=== PATIENT | male | born 1985 | race Caucasian/White ===

== ENCOUNTER 2019-11-18 10:06 | Outpatient (CLI) | payer BC ==
--- NOTE | 2019-11-18 10:48 | ULT ---
Exam: Right neck ultrasound HISTORY: Palpable lymph node in the posterior right triangle. Technique: Targeted sonographic imaging of the posterior right neck demonstrates a enlarged lymph nod e with preserved fatty hilum measuring 2.6 cm in maximum dimension IMPRESSION: Lymphadenopathy. Better interrogation of the soft tissue neck structures is recommended w ith a postcontrast soft tissue neck CT
== END 2019-11-18 10:07 | disposition home or self-care (01) ==
LOC: BICULT 10:06
PROVIDERS: ATTEND Physician Assistant
DX: R22.1 Localized swelling, mass and lump, neck (principal); R59.0 Localized enlarged lymph nodes
CPT/HCPCS: 76536

== ENCOUNTER 2020-02-16 13:08 | Outpatient (CLI) | payer BC ==
[~2020-02-16 13:08] MED LIST: Iopamidol-370 76% 500 ML 1 ML ONE
--- NOTE | 2020-02-16 13:53 | CT ---
CT OF THE SOFT TISSUES OF THE NECK WITH IV CONTRAST INDICATION: Lymphadenopathy of the neck COMPARISON: Ultrasound of the neck dated November 18, 2019 FINDINGS: Aerodigestive tract: Clear. Parotids/Submandibular/Thyroid glands: Normal. Lymph nodes: There are numerous shotty appearing lymph nodes within the bilateral neck. The lymph no de that was enlarged on the prior examination measures 0.7 cm in its greatest short axis and measures 2.6 cm longitudinally within the right level 5A position. There is a 9 mm mildly prominent l eft level 3 lymph node on image 19 of series 2. Shotty appearing lymph nodes are seen within the level 5 positions bilaterally. Shotty appearing lymph nodes are seen within the level 3 position bila terally. There is a mildly prominent left occipital scalp lymph node on image 15 of series 2 measuring 5 mm. Lung Apices: Clear. Bones: No acute osseous abnormality. Incidentals: None. IMPRESSION: Nonspecific shotty, nonpathologically enlarged lymph nodes involving the bilateral neck chains. The s ize of the most conspicuous nodule on the prior ultrasound examination dated November 18, 2019 is not appear appreciably changed. The etiology of these mildly prominent lymph nodes is not discerned on the current CT evaluation. No overt aerodigestive tract lesion is evident. No overt salivary gland or thyroid gland lesion is evident.
== END 2020-02-16 13:09 | disposition home or self-care (01) ==
LOC: BICCT 13:08
PROVIDERS: ATTEND Physician Assistant
DX: R59.0 Localized enlarged lymph nodes (principal)
CPT/HCPCS: 70491; Q9967